=== PATIENT | female | born 1950 | race Caucasian/White ===

== ENCOUNTER → 2023-10-20 10:42 | Outpatient (REF) | payer MEDICARE, OTHER, SELFPAY ==
[2023-10-20 15:54] LABS: ALT (SGPT) 28 U/L (0-35); AST (SGOT) 41 U/L (14-36); Albumin 4.1 g/dl (3.5-5.0); Alkaline Phosphatase 91 U/L (38-126); Blood Urea Nitrogen 10 mg/dl (7-17); Carbon Dioxide 31 mmol/L (22-30); Chloride 101 mmol/L (98-107); Glucose 90 mg/dl (70-99); HDL Cholesterol 84 mg/dl; LDL Cholesterol, Calculated 65 mg/dl; Potassium 3.9 mmol/L (3.5-5.1); Sodium 135 mmol/L (135-145); Total Bilirubin 1.1 mg/dl (0.2-1.3); Total Cholesterol 159 mg/dl (50-199); Total Protein 6.6 g/dl (6.3-8.2); Triglyceride 52 mg/dl (10-149); Very Low Density Lipoprotein 10 mg/dl (0-30); eGFR > 60.00
[2023-10-20 16:23] LABS: TSH 0.12 uIU/ml (0.47-4.68)
== END ==
LOC: HWLAB 10:42
PROVIDERS: ATTENDING PHYSICIAN Internal Medicine Endocrinology, Diabetes & Metabolism; FAMILY PHYSICIAN Internal Medicine
DX: E78.5 Hyperlipidemia, unspecified (principal); E03.9 Hypothyroidism, unspecified
CPT/HCPCS: 36415; 80053; 80061; 84443

== ENCOUNTER → 2023-10-27 09:37 | Outpatient (REF) | payer MEDICARE, OTHER, SELFPAY | LOC: HWWDC 09:37 | PROVIDERS: ATTENDING PHYSICIAN Internal Medicine | DX: Z12.31 Encounter for screening mammogram for malignant neoplasm of breast (principal) | CPT/HCPCS: 77063; 77067 ==

== ENCOUNTER → 2024-01-18 11:44 | Outpatient (REF) | payer MEDICARE, OTHER, SELFPAY ==
[2024-01-19 05:54] LABS: IgA 117 mg/dl (70-400)
[2024-01-20 19:16] LABS: Endomysial IgA Antibody Titer <1:10 (<1:10)
[2024-01-20 22:18] LABS: Fat, Fecal - Neutral Normal (Normal); Fat, Fecal - Split Normal (Normal)
== END ==
LOC: HWLAB 11:44
PROVIDERS: ATTENDING PHYSICIAN Internal Medicine; FAMILY PHYSICIAN Internal Medicine
DX: R19.4 Change in bowel habit (principal)
CPT/HCPCS: 36415; 82653; 82705; 82784; 83516; 83993; 86231; 87328; 87329

== ENCOUNTER → 2024-05-08 10:46 | Outpatient (REF) | payer MEDICARE, OTHER, SELFPAY | LOC: HWLAB 10:46 | PROVIDERS: ATTENDING PHYSICIAN Internal Medicine Endocrinology, Diabetes & Metabolism; FAMILY PHYSICIAN Internal Medicine | DX: E03.9 Hypothyroidism, unspecified (principal) | CPT/HCPCS: 36415; 84443 ==

== ENCOUNTER → 2024-05-30 14:53 | Outpatient (REF) | payer MEDICARE, OTHER, SELFPAY | LOC: HWRAD 14:53 | PROVIDERS: ATTENDING PHYSICIAN Internal Medicine Endocrinology, Diabetes & Metabolism; FAMILY PHYSICIAN Internal Medicine | DX: M81.0 Age-related osteoporosis without current pathological fracture (principal) | CPT/HCPCS: 77080 ==

== ENCOUNTER → 2024-06-11 10:47 | Outpatient (REF) | payer MEDICARE, OTHER, SELFPAY ==
[2024-06-11 12:32] LABS: % Eosinophils 1.8 % (0-6); % Immature Granulocytes 0.4 % (0-0.5); % Lymphocytes 24.6 % (20.5-51.1); % Monocytes 14.3 % (1.7-9.3); % Neutrophils 57.9 % (42.2-75.2); Absolute Basophils 0.1 10^3/uL (0-0.2); Absolute Eosinophils 0.1 10^3/uL (0-0.7); Absolute Lymphocytes 1.2 10^3/uL (1.2-3.4); Absolute Monocytes 0.7 10^3/uL (0.1-0.6); Absolute Neutrophils 2.8 10^3/uL (1.4-6.5); Hematocrit 40.1 % (37.0-47.0); Hemoglobin 13.2 g/dL (12.0-16.0); Mean Corp Hgb Conc. 32.9 g/dL (33.0-37.0); Mean Corpuscular Hgb 30.1 pg (27.0-31.0); Mean Corpuscular Volume 91.3 fL (81.0-99.0); Mean Platelet Volume 11.4 fL (7.4-10.4); Nucleated Red Blood Cells % 0 %; Platelet Count 217 10^3/uL (130-400); Red Blood Cell Count 4.39 10^6/uL (4.20-5.40); Red Cell Dist. Width 13.1 % (11.5-14.5); White Blood Cell Count 4.9 10^3/uL (4.8-10.8)
[2024-06-11 13:02] LABS: Blood Urea Nitrogen 11 mg/dl (7-17); Calcium 9.7 mg/dl (8.4-10.2); Carbon Dioxide 28 mmol/L (22-30); Chloride 101 mmol/L (98-107); Glucose 87 mg/dl (70-99); Potassium 4.4 mmol/L (3.5-5.1); Sodium 139 mmol/L (135-145); eGFR > 60.00
== END ==
LOC: HWLAB 10:47
PROVIDERS: ATTENDING PHYSICIAN Internal Medicine; FAMILY PHYSICIAN Internal Medicine
DX: R04.2 Hemoptysis (principal)
CPT/HCPCS: 36415; 80048; 85025

== ENCOUNTER → 2024-06-12 13:53 | Outpatient (REF) | payer MEDICARE, OTHER, SELFPAY | LOC: HWRAD 13:53 | PROVIDERS: ATTENDING PHYSICIAN Internal Medicine; FAMILY PHYSICIAN Internal Medicine | DX: R04.2 Hemoptysis (principal) | CPT/HCPCS: 71260; Q9967 ==

== ENCOUNTER → 2024-06-21 12:24 | Outpatient (REF) | payer MEDICARE, OTHER, SELFPAY | LOC: HWLAB 12:24 | PROVIDERS: ATTENDING PHYSICIAN Nurse Practitioner Family; FAMILY PHYSICIAN Internal Medicine; REFERRING PHYSICIAN Internal Medicine | DX: R04.2 Hemoptysis (principal) | CPT/HCPCS: 87205 ==

== ENCOUNTER → 2024-07-03 12:06 | Outpatient (REF) | payer MEDICARE, OTHER, SELFPAY | LOC: HWLAB 12:06 | PROVIDERS: ATTENDING PHYSICIAN Nurse Practitioner Family; FAMILY PHYSICIAN Internal Medicine | DX: R04.2 Hemoptysis (principal) | CPT/HCPCS: 36415; 87070; 87147; 87205 ==

== ENCOUNTER → 2024-08-01 12:09 | Outpatient (REF) | payer MEDICARE, OTHER, SELFPAY | LOC: HWLAB 12:09 | PROVIDERS: ATTENDING PHYSICIAN Nurse Practitioner Family; FAMILY PHYSICIAN Internal Medicine | DX: R05.9 Cough, unspecified (principal); R04.2 Hemoptysis | CPT/HCPCS: 87070; 87205 ==

== ENCOUNTER → 2024-11-01 10:46 | Outpatient (REF) | payer MEDICARE, OTHER, SELFPAY | LOC: DHSLP 10:46 | PROVIDERS: ATTENDING PHYSICIAN Internal Medicine Critical Care Medicine; FAMILY PHYSICIAN Internal Medicine | DX: G47.33 Obstructive sleep apnea (adult) (pediatric) (principal); R09.02 Hypoxemia | CPT/HCPCS: 95806 ==

== ENCOUNTER → 2024-11-15 08:42 | Outpatient (REF) | payer MEDICARE, OTHER, SELFPAY ==
[2024-11-15 11:52] LABS: ALT (SGPT) 26 U/L (0-35); AST (SGOT) 37 U/L (14-36); Albumin 4.4 g/dl (3.5-5.0); Alkaline Phosphatase 80 U/L (38-126); Blood Urea Nitrogen 13 mg/dl (7-17); Calcium 9.5 mg/dl (8.4-10.2); Carbon Dioxide 29 mmol/L (22-30); Chloride 102 mmol/L (98-107); Glucose 91 mg/dl (70-99); HDL Cholesterol 87 mg/dl; LDL Cholesterol, Calculated 72 mg/dl; Potassium 3.9 mmol/L (3.5-5.1); Sodium 138 mmol/L (135-145); Total Bilirubin 1.4 mg/dl (0.2-1.3); Total Cholesterol 169 mg/dl (50-199); Total Protein 6.7 g/dl (6.3-8.2); Triglyceride 52 mg/dl (10-149); Very Low Density Lipoprotein 10 mg/dl (0-30); eGFR > 60.00
== END ==
LOC: HWLAB 08:42
PROVIDERS: ATTENDING PHYSICIAN Internal Medicine
DX: E78.5 Hyperlipidemia, unspecified (principal)
CPT/HCPCS: 36415; 80053; 80061

== ENCOUNTER 2025-04-12 12:27 | Emergency (ER) | payer MEDICARE, OTHER, SELFPAY ==
[2025-04-12 12:31] VITALS: BP 123/68
--- NOTE | 2025-04-12 15:19 | ED.GENMED ---
History of Present Illness
General
Chief Complaint: Fall
Time Seen by Provider: 04/12/25 15:02
History of Present Illness
History of Present Illness:
74-year-old female presents to the emergency department for evaluation of knee pain after a fall yesterday. She tripped on pavement while walking at her short house and fell to the ground onto a flexed left knee. She also struck her face on the
ground and braced her fall with the left hand. Currently reports mild nasal pain and left wrist pain but predominantly left knee pain. She is unable to bear weight on the lower extremity. Does not take blood thinners. No dizziness or
lightheadedness at this time
Past History
Past History
ED Past Medical History: Hypothyroidism, Psychiatric and Other (Osteoporosis)
ED Past Surgical History: Gynecological (Tubal ligation) and Other (Thyroidectomy, right inguinal hernia repair)
Social History
Tobacco: Non-smoker
Alcohol: Occasional (Rare alcohol use)
Drug: None
Personal:
Living: with family
Employment: Retired
Family History
Family History: Diabetes and CAD (Father with history of coronary artery disease late in life)
Review of Systems
Review of Systems
Allergies reviewed?: Yes
All Other Systems: ROS reviewed and negative except as documented in HPI and ROS
Phy Exam
Physical Exam
Physical Exam:
GEN: Well appearing, NAD, WDWN
HEENT: Oral mucosa moist, no scleral icterus. Abrasions to the tip of the nose and philtrum, mild swelling to the nasal bridge with infraorbital ecchymosis, no gross deformity
Cardiac: Regular rate
Lung: No respiratory distress, no tachypnea
MSK: No midline cervical, thoracic or lumbar spinal tenderness. Significant left knee effusion, range of motion normal however flexion elicits pain to ambulate. No obvious swelling or deformity left wrist, grossly nontender to bony prominences
Skin: Good color, no pallor or jaundice, no rashes
Neuro: AO x3, moves all extremities freely
Psych: Calm, cooperative
Course
Orders/Labs/Results
Orders:
Orders
04/12/25 12:33
Knee, Left 4 or More Views [CR Knee - Left 4 Or More View*] Urgent
Comment:
Reason For Exam: left knee pain fell on sidewalk yesterday
04/12/25 15:18
CT Lower Ext W/o Iv Cont Lt Urgent
Comment:
Reason For Exam: L knee hemarthrosis, neg XR
Vital Signs
Initial and Last Documented VS:
Initial Vital Signs
Temp Pulse Resp BP Pulse Ox
98.0 F 68 16 123/68 98
04/12/25 12:31 04/12/25 12:31 04/12/25 12:31 04/12/25 12:31 04/12/25 12:31
Last Documented Vital Signs
Temp Pulse Resp BP Pulse Ox
98.0 F 66 16 136/73 98
04/12/25 12:31 04/12/25 17:00 04/12/25 17:00 04/12/25 17:00 04/12/25 17:00
MDM/Problems Addressed
MDM/Problems Addressed:
X-ray initially reviewed by myself shows no evidence for fracture, subsequent CT obtained due to large hemarthrosis to for occult tibial plateau fracture and this was also reassuring. Patient was able to ambulate with walker assistance and knee
immobilizer in place. Discussed supportive care and need for outpatient orthopedic follow-up. No indication for aspiration at this time
*Pulse Oximetry
SaO2: 98
Oxygen Mode of Delivery: Room air
Patient hypoxic: no
*Critical Care Note
Total Time (30-74mins, 75-104mins- exclusive of procedures): Not Applicable
ED Attending Note
-
Portions of this chart may have been created with voice recognition software.� Occasional wrong word or��sound alike� substitutions may have occurred due to the inherent limitations of voice recognition software.
Discharge Plan
Departure
Patient Disposition: Home (Routine Discharge)
Date of Disposition: 04/12/25
Time of Disposition: 18:01
Patient with high blood pressure during this ER visit?: No
Discharge Problem:
Hemarthrosis of knee, left
Instructions: Knee Sprain ED
Prescriptions:
No Action
levothyroxine 88 MCG tablet
88 mcg PO .SIX DAYS A WEEK
escitalopram oxalate 5 MG tablet
5 mg PO Q48H
calcium carbonate-vitamin D3 [Calcium 500 + D] 1 EACH tablet
1 ea PO DAILY
alendronate 70 MG tablet
70 mg PO WEEKLY
Referrals:
Ct Farley MD [Family Provider, Internal Medicine]
Griffin Sanchez MD [Active, Orthopedics]
Interventions
Interventions:
*Risk Screen - Suicide Last Done: 04/12/25 12:31
*General Assessment Last Done: 04/12/25 15:34
*Neglect/Abuse Screening Last Done: 04/12/25 12:31
*ED- Fall Risk Assessment Last Done: 04/12/25 15:34
*ED COVID-19 Vaccine History Last Done: 04/12/25 15:34
*Nursing Disposition Last Done: 04/12/25 18:20
ED-Musculoskeletal Assessment Last Done: 04/12/25 16:19
ED- Neurological Assessment Last Done: 04/12/25 16:19
ED-Skin Assessment Last Done: 04/12/25 16:19
Discharge Date and Time
Discharge Date/Time: 04/12/25 18:20
Print Language: AMERICAN
--- NOTE | 2025-04-12 15:29 | EDRN ---
Pt states arrives post fall last night. Pt took a walk after dinner and fell. Pt tripped on uneven pavement and fell foreward and hit her nose and upper lip area under nose and fell on L knee. Pt put weight on L wrist though it is okay. Pt states
hit her teeth but all appear to be intact per pt. No Loc, hit nose, no blood thinners. Pain in L knee this am was a 9/10, almost fainted due to pain and needed assist of spouse to get to BR.
[2025-04-12 15:34] VITALS: BMI 23.0
[2025-04-12 15:37] VITALS: BP 101/67
[2025-04-12 16:01] VITALS: BP 108/70
[2025-04-12 17:00] VITALS: BP 136/73
--- NOTE | 2025-04-12 17:45 | EDRN ---
Knee immobilizer placed on L leg and pt ambulated w/ walker from stretcher to hallway then to BR and back to a chair in room. Pt stated she had less pain w/ knee immobilizer and felt comfortable walking. Pt also stated she has a walker at home.
--- NOTE | 2025-04-12 18:10 | EDRN ---
Pt was advised to use knee immobilizer and walker as much as possible that she can take knee immobilizer off at night and to bathe, to follow up w/ orthopedist, take motrin up to 3 w/ food for pain or tylenol 2 for pain every 6 hours.
== END 2025-04-12 18:20 | disposition home or self-care (01) ==
LOC: EMR 12:27
PROVIDERS: EMERGENCY PHYSICIAN Student in an Organized Health Care Education/Training Program; FAMILY PHYSICIAN Internal Medicine
DX: M25.062 Hemarthrosis, left knee (principal); E89.0 Postprocedural hypothyroidism; M81.0 Age-related osteoporosis without current pathological fracture; W01.0XXA Fall on same level from slipping, tripping and stumbling without subsequent striking against object, initial encounter; Y92.480 Sidewalk as the place of occurrence of the external cause
CPT/HCPCS: 99284; 29505; 73564; 73700

== ENCOUNTER → 2025-05-08 11:25 | Outpatient (REF) | payer MEDICARE, OTHER, SELFPAY ==
[2025-05-08 17:07] LABS: ALT (SGPT) 31 U/L (0-35); AST (SGOT) 40 U/L (14-36); Albumin 4.3 g/dl (3.5-5.0); Alkaline Phosphatase 92 U/L (38-126); Blood Urea Nitrogen 12 mg/dl (7-17); Calcium 9.5 mg/dl (8.4-10.2); Carbon Dioxide 29 mmol/L (22-30); Chloride 103 mmol/L (98-107); Glucose 78 mg/dl (70-99); Potassium 4.4 mmol/L (3.5-5.1); Sodium 137 mmol/L (135-145); Total Protein 7.0 g/dl (6.3-8.2); eGFR > 60.00
[2025-05-08 17:33] LABS: TSH 1.00 uIU/ml (0.47-4.68)
== END ==
LOC: HWLAB 11:25
PROVIDERS: ATTENDING PHYSICIAN Internal Medicine Endocrinology, Diabetes & Metabolism; FAMILY PHYSICIAN Internal Medicine
DX: E03.9 Hypothyroidism, unspecified (principal)
CPT/HCPCS: 36415; 80053; 84443

== ENCOUNTER → 2025-06-20 09:53 | Outpatient (REF) | payer MEDICARE, OTHER, SELFPAY | LOC: HWWDC 09:53 | PROVIDERS: ATTENDING PHYSICIAN Internal Medicine | DX: Z12.31 Encounter for screening mammogram for malignant neoplasm of breast (principal) | CPT/HCPCS: 77063; 77067 ==